=== PATIENT | male | born 1950 | race Caucasian/White ===

== ENCOUNTER 2017-08-20 11:21 | Emergency (ER) | payer MEDICAID, MEDICARE ==
[2017-08-20 13:36] VITALS: BP 146/79
--- NOTE | 2017-08-20 13:48 | UC ---
Minor Trauma HPI - HPI Summary HPI Summary: He fell in the shower about 5 weeks ago and fell onto his right shoulder and hit right head. He now has right mid neck pain radiating into the right trapezius. No headache and no shoulder pain. No numbness or weakness. - History of Current Complaint Chief Complaint: UCBackPain Stated Complaint: NECK PAIN S/P FALL 6 WKS AGO Time Seen by Provider: 08/20/17 13:37 Hx Obtained From: Patient Onset/Duration: Sudden Onset, Lasting Weeks Onset Of Pain: Immediate Severity Initially: Moderate Severity Currently: Moderate Pain Intensity: 6 Mechanism Of Injury: Blunt Trauma, Direct Blow, Fall From A Standing Position Aggravating Factor(s): Movement - Hurts to turn head. Alleviating Factor(s): Nothing Associated Signs And Symptoms: Negative: Loss Of Consciousness, Ecchymosis - Allergies/Home Medications Allergies/Adverse Reactions: Allergies Allergy/AdvReac Type Severity Reaction Status Date / Time No Known Allergies Allergy Verified 08/20/17 13:30 PMH/Surg Hx/FS Hx/Imm Hx Previously Healthy: No - smoker. - Surgical History Surgical History: Yes Surgery Procedure, Year, and Place: RIGHT KNEE REPLACEMENT . RIGHT ARM SURGERY. - Family History Known Family History: Positive: Other - No related family history of neck disease. - Social History Alcohol Use: None Substance Use Type: None Smoking Status (MU): Heavy Every Day Tobacco Smoker Type: Cigarettes Amount Used/How Often: 1 PPD Have You Smoked in the Last Year: Yes Household Exposure Type: Cigarettes Review of Systems Musculoskeletal: Arthralgia, Myalgia All Other Systems Reviewed And Are Negative: Yes Physical Exam Triage Information Reviewed: Yes Appearance: Well-Appearing - He has some stiffness with turning his neck. He has essentially full rom though., No Pain Distress, Well-Nourished Vital Signs: Initial Vital Signs Temp 98.5 F 08/20/17 13:30 Pulse 80 08/20/17 13:30 Resp 18 08/20/17 13:30 BP 146/79 08/20/17 13:30 Pulse Ox 100 08/20/17 13:30 Eyes: Positive: Conjunctiva Clear ENT: Positive: Hearing grossly normal, Pharynx normal Neck: Positive: Supple, Nontender, No Lymphadenopathy. Negative: Nuchal Rigidity Respiratory: Positive: Lungs clear, Normal breath sounds, No respiratory distress, No accessory muscle use. Negative: Respiratory distress, Decreased breath sounds, Accessory muscle use, Crackles, Rhonchi, Stridor, Wheezing Cardiovascular: Positive: RRR, No Murmur, Pulses Normal, Brisk Capillary Refill Abdomen Description: Positive: No Organomegaly, Soft. Negative: Distended, Guarding Musculoskeletal Exam: Other - there is diffuse right paracervical neck tenderness in the mid neck. Shoulder full rom andno rotator cuff signs on exam. Strength and sensation intact in king upper extremeties. Neurological: Positive: Alert, Muscle Tone Normal, Fatigued. Negative: Lethargic Psychological: Positive: Age Appropriate Behavior Skin: Negative: rashes Minor Trauma Course/Dx - Course Course Of Treatment: We discussed right carotid artery findings on x ray. He promises to find a pcp if he is not able to go back to Dr Cosme. I told him that if he does not get it looked it this may unncessarily lead to a stroke. he agrees. PT, tylenol, moist heat and f/u if not improved. - Differential Dx/Diagnosis Differential Diagnosis/HQI/PQRI: Contusion(s), Fracture, Dislocation, Sprain, Strain Provider Diagnoses: neck pain and sprain. Discharge - Discharge Plan Condition: Good Disposition: HOME Patient Education Materials: Cervical Strain (DC), Cervical Sprain (ED) Referrals: No Primary Care Phys,NOPCP [Primary Care Provider] - Additional Instructions: Follow up with your pcp for x ray findings regarding your carotid artery and to see if you are getting better after Physical therapy.
--- NOTE | 2017-08-20 14:19 | RAD ---
Indication: C4 and C5 neck pain post fall. RIGHT superior cervical spine pain with interval worsening. Decreased range of motion Comparison: No relevant prior exams available on the [facility]. Technique: AP, open-mouth odontoid, lateral, and oblique views cervical spine. Report: Normal alignment from the craniocervical junction through the cervicothoracic junction. Negative for fracture. Moderate C5-C6 and moderately severe C6-C7 disc space narrowing with relative mild vertebral endplate osteophytosis. Multilevel predominant mild facet joint osteoarthritis. The oblique views are without compelling evidence for significant osseous foraminal stenosis. Oblique views demonstrate multilevel mild uncinate process spurring however are negative for significant osseous foraminal stenosis. Unremarkable prevertebral soft tissue contours. Bilateral carotid bifurcation atherosclerotic calcification. IMPRESSION: 1. Cervical spine degenerative spondylosis and facet joint osteoarthritis. No radiographic evidence for traumatic injury. 2. Incidental note of bilateral carotid bifurcation atherosclerotic calcification. Consider carotid ultrasound for further assessment.
== END 2017-08-20 14:30 | disposition home or self-care (01) ==
LOC: UCCORT 11:21
DX: S13.9XXA Sprain of joints and ligaments of unspecified parts of neck, initial encounter (principal); W19.XXXA Unspecified fall, initial encounter; Y93.E1 Activity, personal bathing and showering; Y92.002 Bathroom of unspecified non-institutional (private) residence as the place of occurrence of the external cause; M54.2 Cervicalgia; F17.210 Nicotine dependence, cigarettes, uncomplicated
CPT/HCPCS: 72050; 99201; G0463

== ENCOUNTER 2020-04-19 10:57 | Inpatient (IN) ==
[2020-04-19] MEDS ORDERED: Metoclopramide 5 MG/ML VIAL (10 mg) IV PRN ×2 (11:11→16:19)
[2020-04-19] MEDS ORDERED: Fidaxomicin 200 mg TAB (NF) PO SCH (12:00)
[2020-04-19 15:59] LABS: Hematocrit 26 % (42-52); Hemoglobin 9.1 g/dL (14.0-18.0); Mean Corpuscular HGB Conc 35 g/dL (31-36); Mean Corpuscular Hemoglobin 34 pg (27-31); Mean Corpuscular Volume 98 fL (80-94); Mean Platelet Volume 9.1 fL (7.4-10.4); Platelet Count 247 10^3/uL (150-450); Red Blood Count 2.65 10^6 /uL (4.18-5.48); Red Cell Distribution Width 17 % (10-15); White Blood Count 11.6 10^3/uL (3.5-10.8)
[2020-04-19 16:09] LABS: Albumin 2.9 g/dL (3.2-5.2); Albumin/Globulin Ratio 0.7 (1-3); BUN/Creatinine Ratio 35.6 (8-20); Calcium 8.4 mg/dL (8.6-10.3); EGFR African American 28.9 (>60); EGFR Non-African American 23.9 (>60); Globulin 3.9 g/dL (2-4); Magnesium 2.3 mg/dL (1.9-2.7); Potassium 4.4 mmol/L (3.5-5.0); Total Bilirubin 2.1 mg/dL (0.2-1.0); Total Protein 6.8 g/dL (6.4-8.9)
[2020-04-19] MEDS: NS 0.9% 1000 ml BAG 2,000 ML IV SCH ×2 (16:59→20:05)
[2020-04-19] MEDS: Morphine 2 MG/ML SYRINGE IV PRN (17:00)
[2020-04-19] MEDS: Enoxaparin 30 MG/0.3 ML SYR SUBCUT SCH (17:00)
[2020-04-19] MEDS: Ondansetron 4 mg VIAL 2 MG/ML 2 ml VIAL IV PRN (17:00)
[2020-04-19] MEDS: Pantoprazole VIAL 40 MG VIAL IV SCH (17:10)
[2020-04-19] MEDS: NS 0.9% 1000 ml BAG 1,000 ML IV SCH (22:28)
[2020-04-20] MEDS: NS 0.9% 1000 ml BAG 1,000 ML IV SCH ×3 (05:14→21:58)
[2020-04-20] MEDS: Pantoprazole VIAL 40 MG VIAL IV SCH (08:02)
[2020-04-20] MEDS ORDERED: Nicotine GUM 4MG FRUIT FLAVOR PO PRN (11:32)
[2020-04-20] MEDS: Enoxaparin 30 MG/0.3 ML SYR SUBCUT SCH (17:15)
[2020-04-20] MEDS ORDERED: NS 0.9% 1000 ml BAG 1,000 ML IV SCH (22:01)
[2020-04-21] MEDS: Pantoprazole VIAL 40 MG VIAL IV SCH (07:07)
[2020-04-21] MEDS: Morphine 2 MG/ML SYRINGE IV PRN ×3 (07:10→19:17)
[2020-04-21 07:49] LABS: Albumin 2.6 g/dL (3.2-5.2); Albumin/Globulin Ratio 0.7 (1-3); BUN/Creatinine Ratio 34.3 (8-20); Calcium 7.7 mg/dL (8.6-10.3); EGFR African American 32.4 (>60); EGFR Non-African American 26.8 (>60); Globulin 3.8 g/dL (2-4); Potassium 4.1 mmol/L (3.5-5.0); Total Bilirubin 1.9 mg/dL (0.2-1.0); Total Protein 6.4 g/dL (6.4-8.9)
[2020-04-21 08:18] LABS: Hematocrit 29 % (42-52); Hemoglobin 9.7 g/dL (14.0-18.0); Mean Corpuscular HGB Conc 34 g/dL (31-36); Mean Corpuscular Hemoglobin 34 pg (27-31); Mean Corpuscular Volume 100 fL (80-94); Mean Platelet Volume 8.9 fL (7.4-10.4); Platelet Count 222 10^3/uL (150-450); Red Blood Count 2.84 10^6 /uL (4.18-5.48); Red Cell Distribution Width 17 % (10-15); White Blood Count 8.8 10^3/uL (3.5-10.8)
[2020-04-21 09:23] LABS: ABS Basophils 0.2 10^3/ul (0-0.2); ABS Eosinophils 0.4 10^3/ul (0-0.6)
[2020-04-21] MEDS: Sodium Bicarb 8.4% Vial 50 ML 150 MEQ in D5W 1000 ml BAG 850 ML IV SCH ×2 (10:55→19:43)
[2020-04-21] MEDS: Enoxaparin 30 MG/0.3 ML SYR SUBCUT SCH (16:50)
[2020-04-21 20:15] LABS: Albumin 2.6 g/dL (3.2-5.2); Albumin/Globulin Ratio 0.7 (1-3); BUN/Creatinine Ratio 34.3 (8-20); Calcium 7.5 mg/dL (8.6-10.3); EGFR Non-African American 26.4 (>60); Globulin 3.9 g/dL (2-4); Potassium 3.8 mmol/L (3.5-5.0); Total Bilirubin 1.7 mg/dL (0.2-1.0); Total Protein 6.5 g/dL (6.4-8.9)
[2020-04-22] MEDS: Morphine 2 MG/ML SYRINGE IV PRN ×4 (00:05→20:09)
[2020-04-22] MEDS: Sodium Bicarb 8.4% Vial 50 ML 150 MEQ in D5W 1000 ml BAG 850 ML IV SCH ×3 (03:07→15:17)
[2020-04-22] MEDS: Pantoprazole VIAL 40 MG VIAL IV SCH (08:16)
[2020-04-22 09:40] LABS: Hematocrit 27 % (42-52); Hemoglobin 9.1 g/dL (14.0-18.0); Mean Corpuscular HGB Conc 34 g/dL (31-36); Mean Corpuscular Hemoglobin 33 pg (27-31); Mean Corpuscular Volume 96 fL (80-94); Mean Platelet Volume 8.9 fL (7.4-10.4); Platelet Count 249 10^3/uL (150-450); Red Blood Count 2.76 10^6 /uL (4.18-5.48); Red Cell Distribution Width 17 % (10-15); White Blood Count 7.1 10^3/uL (3.5-10.8)
[2020-04-22 09:52] LABS: Albumin 2.4 g/dL (3.2-5.2); Albumin/Globulin Ratio 0.7 (1-3); BUN/Creatinine Ratio 34.6 (8-20); Calcium 7.3 mg/dL (8.6-10.3); EGFR African American 33.2 (>60); EGFR Non-African American 27.5 (>60); Globulin 3.4 g/dL (2-4); Potassium 3.4 mmol/L (3.5-5.0); Total Bilirubin 1.6 mg/dL (0.2-1.0); Total Protein 5.8 g/dL (6.4-8.9)
[2020-04-22 11:48] LABS: ABS Eosinophils 0.1 10^3/ul (0-0.6)
[2020-04-22] MEDS ORDERED: KCL 20 MEQ/100 ML IVPREMIX 20 MEQ/100 ML BAG IV ONE (12:06)
[2020-04-22] MEDS: Enoxaparin 30 MG/0.3 ML SYR SUBCUT SCH (15:19)
[2020-04-22] MEDS: Ondansetron 4 mg VIAL 2 MG/ML 2 ml VIAL IV PRN (20:14)
[2020-04-23] MEDS: Morphine 2 MG/ML SYRINGE IV PRN ×2 (01:47→11:57)
[2020-04-23] MEDS: Sodium Bicarb 8.4% Vial 50 ML 150 MEQ in D5W 1000 ml BAG 850 ML IV SCH (01:47)
[2020-04-23 09:04] LABS: Hematocrit 28 % (42-52); Hemoglobin 9.8 g/dL (14.0-18.0); Mean Corpuscular HGB Conc 35 g/dL (31-36); Mean Corpuscular Hemoglobin 34 pg (27-31); Mean Corpuscular Volume 96 fL (80-94); Mean Platelet Volume 9.1 fL (7.4-10.4); Platelet Count 250 10^3/uL (150-450); Red Blood Count 2.92 10^6 /uL (4.18-5.48); Red Cell Distribution Width 17 % (10-15); White Blood Count 8.3 10^3/uL (3.5-10.8)
[2020-04-23 09:13] LABS: Albumin 2.6 g/dL (3.2-5.2); Albumin/Globulin Ratio 0.7 (1-3); BUN/Creatinine Ratio 33.6 (8-20); Calcium 7.6 mg/dL (8.6-10.3); EGFR Non-African American 28.1 (>60); Globulin 3.7 g/dL (2-4); Potassium 3.4 mmol/L (3.5-5.0); Total Bilirubin 1.7 mg/dL (0.2-1.0); Total Protein 6.3 g/dL (6.4-8.9)
[2020-04-23] MEDS: Pantoprazole VIAL 40 MG VIAL IV SCH (09:31)
[2020-04-23] MEDS ORDERED: KCL 20 MEQ/100 ML IVPREMIX 20 MEQ/100 ML BAG IV ONE (09:52)
[2020-04-23 09:53] LABS: ABS Neutrophils 7.2 10^3/ul (1.5-7.7)
[2020-04-23 09:54] LABS: ABS Eosinophils 0.2 10^3/ul (0-0.6)
[2020-04-23] MEDS: NS 0.9% 1000 ml BAG 1,000 ML IV SCH (11:43)
[2020-04-23] MEDS: Enoxaparin 30 MG/0.3 ML SYR SUBCUT SCH (17:07)
[2020-04-24 08:14] LABS: Hematocrit 28 % (42-52); Hemoglobin 9.5 g/dL (14.0-18.0); Mean Corpuscular HGB Conc 35 g/dL (31-36); Mean Corpuscular Hemoglobin 34 pg (27-31); Mean Corpuscular Volume 97 fL (80-94); Mean Platelet Volume 8.8 fL (7.4-10.4); Platelet Count 231 10^3/uL (150-450); Red Blood Count 2.82 10^6 /uL (4.18-5.48); Red Cell Distribution Width 17 % (10-15); White Blood Count 9.1 10^3/uL (3.5-10.8)
[2020-04-24 08:19] LABS: Albumin 2.2 g/dL (3.2-5.2); Albumin/Globulin Ratio 0.6 (1-3); BUN/Creatinine Ratio 33.6 (8-20); Calcium 7.2 mg/dL (8.6-10.3); EGFR African American 34.6 (>60); EGFR Non-African American 28.6 (>60); Globulin 3.6 g/dL (2-4); Potassium 3.8 mmol/L (3.5-5.0); Total Bilirubin 1.7 mg/dL (0.2-1.0); Total Protein 5.8 g/dL (6.4-8.9)
[2020-04-24 08:28] LABS: Nucleated Red Blood Cells % 0.1
[2020-04-24 08:30] LABS: ABS Eosinophils 0.1 10^3/ul (0-0.6); ABS Neutrophils 7.7 10^3/ul (1.5-7.7)
[2020-04-24] MEDS ORDERED: Pneumococcal Vac 23-Polyvalent IM ONE (09:00)
[2020-04-24] MEDS ORDERED: Influenza VAC *QUAD* 2020-21* 0.5 ML SYRINGE IM ONE (09:00)
[2020-04-24] MEDS: Pantoprazole VIAL 40 MG VIAL IV SCH (09:02)
[2020-04-24] MEDS: Morphine 2 MG/ML SYRINGE IV PRN ×2 (09:02→20:33)
[2020-04-24] MEDS: NS 0.9% 1000 ml BAG 1,000 ML IV SCH (14:23)
[2020-04-24] MEDS: Enoxaparin 30 MG/0.3 ML SYR SUBCUT SCH (18:12)
[2020-04-25 07:41] LABS: Albumin 2.3 g/dL (3.2-5.2); Albumin/Globulin Ratio 0.6 (1-3); BUN/Creatinine Ratio 31.1 (8-20); Calcium 7.2 mg/dL (8.6-10.3); EGFR African American 32.1 (>60); EGFR Non-African American 26.5 (>60); Globulin 3.6 g/dL (2-4); Potassium 3.7 mmol/L (3.5-5.0); Total Bilirubin 1.6 mg/dL (0.2-1.0); Total Protein 5.9 g/dL (6.4-8.9)
[2020-04-25 07:50] LABS: Hematocrit 28 % (42-52); Hemoglobin 9.5 g/dL (14.0-18.0); Mean Corpuscular HGB Conc 34 g/dL (31-36); Mean Corpuscular Hemoglobin 33 pg (27-31); Mean Corpuscular Volume 97 fL (80-94); Mean Platelet Volume 9.3 fL (7.4-10.4); Platelet Count 256 10^3/uL (150-450); Red Blood Count 2.86 10^6 /uL (4.18-5.48); Red Cell Distribution Width 17 % (10-15); White Blood Count 8.3 10^3/uL (3.5-10.8)
[2020-04-25 09:12] LABS: ABS Eosinophils 0.4 10^3/ul (0-0.6); ABS Neutrophils 6.9 10^3/ul (1.5-7.7)
[2020-04-25] MEDS: Pantoprazole VIAL 40 MG VIAL IV SCH (09:41)
[2020-04-25] MEDS: Morphine 2 MG/ML SYRINGE IV PRN (09:42)
[2020-04-25] MEDS: Enoxaparin 30 MG/0.3 ML SYR SUBCUT SCH (17:54)
[2020-04-25] MEDS: NS 0.9% 1000 ml BAG 1,000 ML IV SCH (17:56)
[2020-04-26] MEDS: Morphine 2 MG/ML SYRINGE IV PRN (10:12)
[2020-04-26] MEDS: Pantoprazole VIAL 40 MG VIAL IV SCH (10:12)
[2020-04-26] MEDS: Ondansetron 4 mg VIAL 2 MG/ML 2 ml VIAL IV PRN (10:15)
[2020-04-26 11:45] VITALS: BP 117/58
== END 2020-04-26 15:15 | disposition hospice, home (50) | DRG 372 ==
LOC: MED 12:02
PROVIDERS: ADMIT Internal Medicine Hematology & Oncology; ATTEND Internal Medicine Hematology & Oncology